=== PATIENT | female | born 1955 | race Caucasian/White ===

== ENCOUNTER 2018-05-09 12:11 | Day surgery (SDC) | END 2018-05-09 16:15 | disposition home or self-care (01) ==

== ENCOUNTER 2018-09-18 14:05 | Emergency (ER) | payer OTHER ==
[~2018-09-18] VITALS: Wt 51.1 kg
[~2018-09-18 14:05] MED LIST: AMBIEN; GABAPENTIN; GLIMEPIRIDE; JANUVIA; METFORMIN; OMEPRAZOLE
[2018-09-18 19:06] VITALS: BP 120/75; PULSE 70; RESP 18
[2018-09-18] MEDS ORDERED: NITR-58 PO (19:28)
[2018-09-18] MEDS ORDERED: PHEN-538 PO (19:28)
[2018-09-18] MEDS ORDERED: NITROFURANTOIN (SR) 100 MG CAP PO ONE (19:30)
[2018-09-18] MEDS ORDERED: PHENAZOPYRIDINE 100 MG TAB PO ONE (19:30)
[2018-09-18] MEDS ORDERED: NPH10OT LEFT EAR (19:41)
[2018-09-18] MEDS ORDERED: TRAM50TA PO (19:47)
[2018-09-18] MEDS ORDERED: METF500T24 PO (19:48)
[2018-09-18] MEDS ORDERED: GLIP-160 PO (19:48)
[2018-09-18] MEDS ORDERED: SITA50TA2 PO (19:48)
[2018-09-18] MEDS ORDERED: OMEG-135 PO (19:49)
[2018-09-18] MEDS ORDERED: CALC-267 PO (19:50)
[2018-09-18] MEDS ORDERED: ZOLP5TAB7 PO (19:50)
[2018-09-18] MEDS ORDERED: ERGO500013 PO (19:50)
[2018-09-18] MEDS ORDERED: OMEP40CA6 PO (19:51)
[2018-09-18] MEDS ORDERED: ALBU18HF INHALATION (19:51)
[2018-09-18] MEDS ORDERED: GABA100C14 PO (19:52)
--- NOTE | 2018-09-18 20:21 | ERD ---
ER Documentation Chief Complaint Chief Complaint low back and low abd pain w/ blood on urination x 10 days HPI Patient is a 62-year-old female with diabetes who presents with lower back pain and abdominal pain. The symptoms started 1 week ago. She noticed blood in her urine this morning at 3 AM. Patient had subjective fever. She has pain with urination as well. Upon review of old medical records this is the patient's fifth visit to the ER since 2015. She does have a primary doctor. ROS All systems reviewed and are negative except as per history of present illness. Medications Home Meds Active Scripts Neomycin/Polymyxin/Hydrocort* (Cortisporin* Otic) 10 Ml Susp, 4 DROP LEFT EAR QID for 7 Days, EA Prov:OCTAVIO GOMES MD 09/18/18 Phenazopyridine Hcl* (Pyridium*) 200 Mg Tab, 200 MG PO TID PRN for URINARY PAIN, #6 TAB Prov:OCTAVIO GOMES MD 09/18/18 Nitrofurantoin Monohyd Macrocr* (Macrobid*) 100 Mg Capsr, 100 MG PO BID for 7 Days, CAP Prov:OCTAVIO GOMES MD 09/18/18 Reported Medications Gabapentin* (Gabapentin*) 100 Mg Capsule, 100 MG PO TID, #90 CAP 09/18/18 Omeprazole* (Omeprazole*) 40 Mg Capsule.dr, 40 MG PO DAILY, #30 CAP 09/18/18 Albuterol Sulfate* (Ventolin HFA*) 18 Gm Hfa.aer.ad, 2 PUFF INHALATION Q4H, #1 INHALER 09/18/18 Ergocalciferol (Vitamin D2) (VITAMIN D2) 50,000 Unit Capsule, 69790 UNIT PO Q14D, CAP 09/18/18 Zolpidem Tartrate* (Zolpidem Tartrate*) 5 Mg Tablet, 5 MG PO QHS PRN for INSOMNIA, #30 TAB 09/18/18 Calc/D3/Mag/Zn/Customer Counter Representative/Roberto/Goldsmith (Calcium 600 + Vit D) 1 Each Tablet, 1 TAB PO BID, TAB 09/18/18 [place]-3 Fatty Acids/Fish Oil (Fish Oil 1,000 mg Capsule) 1 Each Capsule, 1 EACH PO DAILY, CAP 09/18/18 Glipizide XL* (Glipizide XL*) 5 Mg Tabsr, 5 MG PO BID, TAB 09/18/18 Sitagliptin* (Januvia*) 50 Mg Tablet, 50 MG PO DAILY, #30 TAB 09/18/18 Metformin Hcl* (Metformin Hcl*) 500 Mg Tablet, 500 MG PO WITH BREAKFAST DINNE, #60 TAB 09/18/18 Tramadol Hcl* (Ultram*) 50 Mg Tablet, 50 MG PO Q8, TAB 09/18/18 Discontinued Reported Medications [Glimepiride] No Conflict Check 05/09/18 [Metformin] No Conflict Check 05/09/18 [Januvia] No Conflict Check 05/09/18 [Ambien] No Conflict Check 05/09/18 [Gabapentin] No Conflict Check 05/09/18 [Omeprazole] No Conflict Check 05/09/18 Allergies Allergies: Coded Allergies: No Known Allergy (Unverified , 09/18/18) PMhx/Soc History of Surgery: Yes (CHOLECYSTECTOMY, APPEDECTOMY. ) Anesthesia Reaction: No Hx Neurological Disorder: Yes Hx Respiratory Disorders: No Hx Cardiac Disorders: No Hx Psychiatric Problems: No Hx Miscellaneous Medical Probl: Yes (DIABETES) Hx Alcohol Use: No Hx Substance Use: No Hx Tobacco Use: No Smoking Status: Never smoker FmHx Family History: No diabetes Physical Exam Vitals Vital Signs Date Temp Pulse Resp B/P (MAP) Pulse Ox O2 O2 Flow FiO2 Time Delivery Rate 09/18/18 98.4 70 18 120/75 100 Room Air 19:06 (90) 09/18/18 99.2 89 20 135/65 97 14:10 (88) Physical Exam Const: No acute distress Head: Atraumatic Eyes: Normal Conjunctiva ENT: Normal External Ears, Nose and Mouth. Neck: Full range of motion. No meningismus. Resp: Clear to auscultation bilaterally Cardio: Regular rate and rhythm, no murmurs Abd: Soft, non tender, non distended. Normal bowel sounds Skin: No petechiae or rashes Back: No midline or flank tenderness Ext: No cyanosis, or edema Neur: Awake and alert Psych: Normal Mood and Affect Results 24 hrs Laboratory Tests Test 09/18/18 19:28 Bedside Urine pH (LAB) 5.5 Bedside Urine Protein (LAB) Negative Bedside Urine Glucose (UA) 0.50% Bedside Urine Ketones (LAB) 1+ Bedside Urine Blood 2+ Bedside Urine Nitrite (LAB) Negative Bedside Urine Leukocyte Esterase (L Negative Current Medications Medications Dose Sig/Jordyn Start Time Status Last (Trade) Ordered Route PRN Stop Time Admin Dose Reason Admin 100 mg ONCE ONCE 09/18/18 DC 09/18/18 Nitrofurantoi PO 19:30 19:35 n 09/18/18 19:31 Macrocrystals (Macrobid) 200 mg ONCE ONCE 09/18/18 DC 09/18/18 Phenazopyridi PO 19:30 19:35 ne HCl 09/18/18 19:31 (Pyridium) Procedures/MDM Patient is a 62-year-old female who presents with abdominal pain and pain with urination. She has no hematuria in the emergency department on gross visualization of her urine but does have hematuria in the urine dip. She did have gross visualization earlier today but that has since stopped. This may be related to infection the patient will be treated with Macrobid and Pyridium. She will need to follow-up with her primary doctor within 24-48 hours. She can return sooner for any worsening symptoms. She is otherwise well-appearing without any abdominal pain on exam and I believe outpatient management is appropriate. She will need close follow-up however with her primary doctor. I doubt appendicitis, cholecystitis, pancreatitis, or bowel obstruction. Departure Diagnosis: Primary Impression: Hematuria Hematuria type: unspecified type Qualified Codes: R31.9 - Hematuria, unspecified Additional Impressions: Flank pain Cystitis Condition: Fair Patient Instructions: Cystitis, Flank Pain, Uncertain Cause, Hematuria Referrals: Your doctor Additional Instructions: Llame al doctor MAANA y jermaine jostin DAVE PARA DENTRO DE 1-2 YOUNG.Dgale a la secretaria que nosotros le instruimos hacer esta dave.Avise o llame si barillas condicin se empeora antes de la dave. Regresa aqui si peor o no mejor. OCTAVIO GOMES MD Sep 18, 2018 20:21
== END 2018-09-18 19:46 | disposition home or self-care (01) ==
LOC: E/R 14:05
DX: N30.91 Cystitis, unspecified with hematuria (principal); E11.9 Type 2 diabetes mellitus without complications; Z79.84 Long term (current) use of oral hypoglycemic drugs
CPT/HCPCS: 81003; Z7502; Z7610; 99283